=== PATIENT | male | born 2000 | race Caucasian/White ===

== ENCOUNTER 2021-02-15 21:51 | Emergency (ER) | payer OTHER ==
[~2021-02-15] VITALS: Ht 180.3 cm; Wt 79.4 kg
[2021-02-15 22:14] VITALS: BP 130/60
== END 2021-02-15 22:30 | disposition home or self-care (01) ==
LOC: ER 21:51
PROVIDERS: Student in an Organized Health Care Education/Training Program
DX: U07.1 COVID-19 (principal); J06.9 Acute upper respiratory infection, unspecified; R05.9 Cough, unspecified